=== PATIENT | male | born 1990 | race Caucasian/White ===

== ENCOUNTER 2018-04-19 20:02 | Emergency (ER) | payer OTHER ==
[~2018-04-19] VITALS: Ht 177.8 cm; Wt 81.8 kg
[~2018-04-19 20:02] MED LIST: NOHOMEMEDS; SUBOXONE 8 MG-1 EAC2 SL
[2018-04-19 21:01] LABS: CHLORIDE 104 mEq/L (99-109); POTASSIUM 4.7 mEq/L (3.7-5.4); SODIUM 141 mEq/L (136-147)
[2018-04-19 21:02] LABS: GLUCOSE 104 mg/dL (70-99)
[2018-04-19 21:06] LABS: CREATININE 0.9 mg/dL (0.6-1.3); GFR ESTIMATE (CALCULATED) > 59 mL/min/ (58.99-99999)
[2018-04-19 21:07] LABS: UREA NITROGEN (BUN) 11 mg/dL (9-23)
[2018-04-19] MEDS ORDERED: ZOFRAN ODT8 MG PO (21:37)
[2018-04-19 21:42] VITALS: BP 123/77
== END 2018-04-19 21:42 | disposition home or self-care (01) ==
LOC: EME 20:02 → RME 20:02
PROVIDERS: Physician Assistant
DX: R11.2 Nausea with vomiting, unspecified (principal); E86.0 Dehydration; F17.200 Nicotine dependence, unspecified, uncomplicated
CPT/HCPCS: 80048; 99281; 99284; J7040

== ENCOUNTER 2018-05-14 13:15 | Emergency (ER) | payer OTHER ==
[~2018-05-14] VITALS: Ht 175.3 cm; Wt 82.6 kg
[~2018-05-14 13:15] MED LIST changes: +ZOFRAN ODT8 MG PO
[2018-05-14] MEDS ORDERED: MUCINEX FAST-M1 EAC2 PO (15:58)
[2018-05-14] MEDS ORDERED: FLONASE16 G1 BOTH NARES (15:58)
[2018-05-14 16:12] VITALS: BP 115/72
== END 2018-05-14 16:14 | disposition home or self-care (01) ==
LOC: EME 13:15
DX: B34.9 Viral infection, unspecified (principal); J02.9 Acute pharyngitis, unspecified; R09.81 Nasal congestion; B19.20 Unspecified viral hepatitis C without hepatic coma; F17.200 Nicotine dependence, unspecified, uncomplicated
CPT/HCPCS: 87651 90; 99281; 99284